=== PATIENT | male | born 1950 | race African-American/Black ===

== ENCOUNTER 2020-04-01 10:16 | Emergency (ER) | payer BC, OTHER ==
[~2020-04-01] VITALS: Ht 180.3 cm; Wt 59.0 kg
[2020-04-01] MEDS ORDERED: METHOCARBAMOL 500MG TABLET PO ONE (11:00)
[2020-04-01] MEDS ORDERED: KETOROLAC 60MG/2ML VIAL IM ONE (11:00)
[2020-04-01] MEDS ORDERED: HYDROCODONE/ACETAMINOPHEN 10/325MG TABLET PO ONE (11:30)
[2020-04-01 11:40] VITALS: BP 103/57
== END 2020-04-01 12:20 | disposition home or self-care (01) ==
LOC: ER 10:16
DX: G89.4 Chronic pain syndrome (principal); M54.2 Cervicalgia; M54.9 Dorsalgia, unspecified; M19.90 Unspecified osteoarthritis, unspecified site; Z88.0 Allergy status to penicillin
CPT/HCPCS: 93005; 96372; 99283; J1885

== ENCOUNTER 2020-04-28 19:39 | Emergency (ER) | payer BC, OTHER ==
[~2020-04-28] VITALS: Ht 182.9 cm; Wt 68.0 kg
[2020-04-28] MEDS ORDERED: KETOROLAC 60MG/2ML VIAL IM ONE (20:45)
[2020-04-28 20:57] VITALS: BP 142/76
== END 2020-04-28 21:00 | disposition left against medical advice (07) ==
LOC: ER 19:39
DX: G89.29 Other chronic pain (principal); M54.5 Low back pain; Z88.0 Allergy status to penicillin
CPT/HCPCS: 99283